=== PATIENT | female | born 1990 | race Caucasian/White ===

== ENCOUNTER 2016-11-09 22:27 | Observation (INO) ==
[2016-11-09 22:50] VITALS: BP 112/59
--- NOTE | 2016-11-11 16:03 | OB Labor Progress Note ---
Date of Encounter: 11/09/16 Time of Encounter: 21:00 Labor Progress Note - Plan Plan: patient presented as a labor eval, she was examined and deemed not to be in labor, ok for discharge, NST reactive.
== END 2016-11-09 23:08 | disposition home or self-care (01) ==
LOC: 1NENULAB
PROVIDERS: ADMIT Student in an Organized Health Care Education/Training Program; ATTEND Student in an Organized Health Care Education/Training Program